=== PATIENT | male | born 2000 | race African-American/Black ===

== ENCOUNTER 2024-12-22 23:21 | Emergency (ER) | payer MEDICAID ==
[~2024-12-22] VITALS: Ht 170.2 cm; Wt 83.0 kg
[2024-12-22 23:36] VITALS: O2SAT 100
[2024-12-23] MEDS: BACITRACIN ZINC OINT UDPKT TOP ONE (02:45)
[2024-12-23] MEDS: LIDOCAINE HCL/PF 1% 10 MG/ML 5ML VIAL INFIL ONE (02:45)
[2024-12-23] MEDS: TETANUS, DIPHTHERIA, PERTUSSIS VAC/PF 0.5ML (>10YR OLD) IM ONE (03:08)
[2024-12-23] MEDS: ACETAMINOPHEN 325MG TABLET PO ONE (06:25)
[2024-12-23] MEDS: KETOROLAC 30MG/ML VIAL IM ONE (06:25)
[2024-12-23 06:35] VITALS: BP 140/79; PULSE 72; RESP 18; TEMP 36.8; O2SAT 99
== END 2024-12-23 06:44 | disposition home or self-care (01) ==
LOC: ER 23:21
DX: S01.511A Laceration without foreign body of lip, initial encounter (principal); F41.9 Anxiety disorder, unspecified; F32.A Depression, unspecified; Y08.89XA Assault by other specified means, initial encounter; Y93.89 Activity, other specified; Y92.89 Other specified places as the place of occurrence of the external cause; Y99.8 Other external cause status
CPT/HCPCS: 99284; 90715; 40650; 90471; 96372; J1885; J2003; Z7610 ×3

== ENCOUNTER 2025-01-03 10:23 | Emergency (ER) | payer MEDICAID ==
[~2025-01-03] VITALS: Ht 170.2 cm; Wt 100.0 kg
[2025-01-03 10:29] VITALS: TEMP 37.1; O2SAT 100
[2025-01-03 11:11] VITALS: BP 128/60; PULSE 64; RESP 18; O2SAT 100
== END 2025-01-03 11:12 | disposition home or self-care (01) ==
LOC: ER 10:23
DX: S01.511D Laceration without foreign body of lip, subsequent encounter (principal); F41.9 Anxiety disorder, unspecified; X58.XXXD Exposure to other specified factors, subsequent encounter
CPT/HCPCS: 99281; Z7610 ×2